=== PATIENT | female | born 2000 | race Caucasian/White ===

== ENCOUNTER 2020-05-13 02:59 | Emergency (ER) | payer OTHER ==
[~2020-05-13] VITALS: Ht 162.6 cm; Wt 90.7 kg
[~2020-05-13 02:59] MED LIST: PHENERGAN 12.12.5 M1 PO; ZOFRAN ODT 4 MG4 MG PO
[2020-05-13 04:51] LABS: HEMOGLOBIN 14.5 gm/dl (12.3-15.3); RED BLOOD COUNT 4.87 M/UL (4.00-5.10); WHITE BLOOD COUNT 8.8 K/UL (4.5-11.0)
[2020-05-13 05:14] LABS: BUN/CREATININE RATIO 13 (0-10)
[2020-05-13] MEDS ORDERED: MEDROL DOSEPAK 24 MG PO (05:47)
[2020-05-13] MEDS ORDERED: PROAIR DIGIHAL90 MCG INH (05:47)
[2020-05-13] MEDS ORDERED: ZOFRAN 4 MG TAB4 MG PO (05:47)
[2020-05-13] MEDS ORDERED: FLOVENT 110.088 GM/I INH (05:47)
== END 2020-05-13 07:40 | disposition home or self-care (01) ==
LOC: ER1 02:59
PROVIDERS: Emergency Medicine
DX: U07.1 COVID-19 (principal); J45.909 Unspecified asthma, uncomplicated; F17.290 Nicotine dependence, other tobacco product, uncomplicated
CPT/HCPCS: 0240U; 71045; 80053; 84703; 85025; 96374; 99284; J2405; M0239

== ENCOUNTER → 2020-06-25 | Outpatient (CLI) | payer OTHER ==
[~2020-06-25] MED LIST changes: +FLOVENT 110.088 GM/I INH; +MEDROL DOSEPAK 24 MG PO; +PROAIR DIGIHAL90 MCG INH; +ZOFRAN 4 MG TAB4 MG PO
== END ==
LOC: KOH-I 06-24 15:00
DX: R22.1 Localized swelling, mass and lump, neck (principal)
CPT/HCPCS: 76536

== ENCOUNTER 2021-02-27 17:08 | Emergency (ER) | payer OTHER | END 2021-02-27 19:12 | disposition left against medical advice (07) | LOC: ER1 17:08 | DX: Z53.21 Procedure and treatment not carried out due to patient leaving prior to being seen by health care provider (principal) ==

== ENCOUNTER → 2021-03-13 | Outpatient (CLI) | payer OTHER | LOC: CT 03-07 08:30 | DX: R10.9 Unspecified abdominal pain (principal) | CPT/HCPCS: Q9967 ==